=== PATIENT | male | born 1945 ===

== ENCOUNTER 2020-04-24 20:20 | Inpatient (IN) ==
[2020-04-24] MEDS ORDERED: NS 0.9% 1000 ml BAG 1,000 ML IV ONE ×2 (20:56→21:47)
[2020-04-24] MEDS ORDERED: Pantoprazole VIAL 40 MG VIAL IV ONE (21:11)
[2020-04-24 21:28] LABS: ABS Lymphocytes 0.8 10^3/ul (1.0-4.8); ABS Monocytes 0.7 10^3/ul (0-0.8); ABS Neutrophils 6.2 10^3/ul (1.5-7.7); Hematocrit 37 % (42-52); Hemoglobin 12.4 g/dL (14.0-18.0); Lymphocyte % 10.8 %; Mean Corpuscular HGB Conc 34 g/dL (31-36); Mean Corpuscular Hemoglobin 37 pg (27-31); Mean Corpuscular Volume 109 fL (80-94); Mean Platelet Volume 11.4 fL (7.4-10.4); Platelet Count 58 10^3/uL (150-450); Red Blood Count 3.37 10^6 /uL (4.18-5.48); Red Cell Distribution Width 16 % (10-15); White Blood Count 7.8 10^3/uL (3.5-10.8)
[2020-04-24 21:38] LABS: Urine Appearance Clear; Urine Bilirubin Negative (Negative); Urine Blood 1+ (Negative); Urine Color Yellow; Urine Glucose Negative (Negative); Urine Ketones Trace (Negative); Urine Nitrite Negative (Negative); Urine Protein 2+(100 mg/dL) (Negative); Urine Specific Gravity 1.016 (1.010-1.030); Urine Urobilinogen Negative (Negative)
[2020-04-24 21:39] LABS: Activated Partial Thrombo Time 31.8 seconds (26.0-38.0); INR 1.3 (0.82-1.09)
[2020-04-24 21:45] LABS: Urine Bacteria Absent (Absent); Urine Red Blood Cell Trace(0-2/hpf) (Absent); Urine White Blood Cell Trace(0-5/hpf) (Absent)
[2020-04-24 21:47] LABS: ALT 41 U/L (7-52); AST 59 U/L (13-39); Albumin 3.4 g/dL (3.2-5.2); Albumin/Globulin Ratio 0.7 (1-3); Alkaline Phosphatase 118 U/L (34-104); BUN/Creatinine Ratio 25.8 (8-20); Blood Urea Nitrogen 58 mg/dL (6-24); C Reactive Protein 41.17 mg/L (<8.01); Calcium 9.8 mg/dL (8.6-10.3); Creatine Kinase 960 U/L (10-223); EGFR African American 34.8 (>60); EGFR Non-African American 28.7 (>60); Globulin 4.9 g/dL (2-4); Glucose 146 mg/dL (70-100); Sodium 143 mmol/L (135-145); Total Protein 8.3 g/dL (6.4-8.9)
[2020-04-24 21:48] LABS: Anion Gap 18 mmol/L (2-11); CO2 Carbon Dioxide 12 mmol/L (22-32); Chloride 113 mmol/L (101-111); Potassium 5.8 mmol/L (3.5-5.0)
[2020-04-24 21:49] LABS: Troponin I 0.25 ng/mL (<0.03)
[2020-04-24] MEDS ORDERED: Dexamethasone IV 6 MG in NS 0.9% 50 ML 50 ML IVPB ONE (23:51)
[2020-04-25 00:30] LABS: LDH 277 U/L (140-271)
[2020-04-25] MEDS ORDERED: Dexamethasone IV 4 MG/ML VIAL 1 ml VIAL IV SLOW PU ONE (00:30)
[2020-04-25] MEDS ORDERED: Patiromer POWDER 8.4 GM PAK PO ONE (00:30)
[2020-04-25] MEDS ORDERED: Dextrose 50% Syringe 50 ml 25 GM/50 ML SYRINGE IV PUSH PRN (00:44)
[2020-04-25 00:49] LABS: Ferritin 283.4 ng/mL (24-336)
[2020-04-25 02:02] LABS: Urine Creatinine Concentration 120.01 mg/dL
[2020-04-25 02:03] LABS: BUN/Creatinine Ratio 27.8 (8-20); Blood Urea Nitrogen 54 mg/dL (6-24); CO2 Carbon Dioxide 15 mmol/L (22-32); Calcium 9.1 mg/dL (8.6-10.3); EGFR African American 41.3 (>60); EGFR Non-African American 34.1 (>60); Glucose 149 mg/dL (70-100); Potassium 4.6 mmol/L (3.5-5.0); Sodium 144 mmol/L (135-145)
[2020-04-25 02:05] LABS: Anion Gap 12 mmol/L (2-11); Chloride 117 mmol/L (101-111)
[2020-04-25 02:06] LABS: Troponin I 0.28 ng/mL (<0.03)
[2020-04-25] MEDS: Sodium Bicarb 8.4% Vial 50 ML 150 MEQ in D5W 1000 ml BAG 850 ML IV SCH (02:51)
[2020-04-25] MEDS ORDERED: Enoxaparin 40 MG/0.4 ML SYR SUBCUT SCH (06:00)
[2020-04-25 06:36] LABS: ABS Lymphocytes 0.7 10^3/ul (1.0-4.8); ABS Monocytes 0.3 10^3/ul (0-0.8); ABS Neutrophils 5.7 10^3/ul (1.5-7.7); Hematocrit 32 % (42-52); Hemoglobin 11.2 g/dL (14.0-18.0); Lymphocyte % 10.7 %; Mean Corpuscular HGB Conc 35 g/dL (31-36); Mean Corpuscular Hemoglobin 37 pg (27-31); Mean Corpuscular Volume 108 fL (80-94); Mean Platelet Volume 12.1 fL (7.4-10.4); Nucleated Red Blood Cells % 0.1; Platelet Count 55 10^3/uL (150-450); Red Cell Distribution Width 16 % (10-15); White Blood Count 6.7 10^3/uL (3.5-10.8)
[2020-04-25 08:28] LABS: Troponin I 0.24 ng/mL (<0.03)
[2020-04-25] MEDS: Aspirin EC 81 mg TAB.EC (enteric coated) PO SCH (10:32)
[2020-04-25 17:48] LABS: BUN/Creatinine Ratio 31.2 (8-20); EGFR Non-African American 39.7 (>60); Potassium 3.9 mmol/L (3.5-5.0)
[2020-04-25] MEDS: Enoxaparin 40 MG/0.4 ML SYR SUBCUT SCH (20:30)
[2020-04-26] MEDS: cefTRIAXone 1 gm/50 mL NS BAG 1 GM/50 ML BAG IVPB SCH (01:08)
[2020-04-26] MEDS: Sodium Bicarb 8.4% Vial 50 ML 150 MEQ in D5W 1000 ml BAG 850 ML IV SCH (03:21)
[2020-04-26] MEDS: Enoxaparin 40 MG/0.4 ML SYR SUBCUT SCH ×2 (09:11→21:31)
[2020-04-26] MEDS: Aspirin EC 81 mg TAB.EC (enteric coated) PO SCH (09:11)
[2020-04-26 10:23] LABS: ABS Lymphocytes 0.8 10^3/ul (1.0-4.8); ABS Monocytes 0.3 10^3/ul (0-0.8); ABS Neutrophils 7.7 10^3/ul (1.5-7.7); Hematocrit 31 % (42-52); Hemoglobin 10.4 g/dL (14.0-18.0); Lymphocyte % 9.2 %; Mean Corpuscular HGB Conc 34 g/dL (31-36); Mean Corpuscular Hemoglobin 37 pg (27-31); Mean Corpuscular Volume 109 fL (80-94); Mean Platelet Volume 11.2 fL (7.4-10.4); Platelet Count 51 10^3/uL (150-450); Red Blood Count 2.81 10^6 /uL (4.18-5.48); Red Cell Distribution Width 16 % (10-15); White Blood Count 8.9 10^3/uL (3.5-10.8)
[2020-04-26 10:37] LABS: Albumin 2.7 g/dL (3.2-5.2); Albumin/Globulin Ratio 0.7 (1-3); BUN/Creatinine Ratio 35.6 (8-20); Calcium 8.3 mg/dL (8.6-10.3); EGFR African American 55.9 (>60); EGFR Non-African American 46.2 (>60); Total Protein 6.7 g/dL (6.4-8.9)
[2020-04-26] MEDS ORDERED: NS 0.9% 1000 ml BAG 1,000 ML IV SCH (11:00)
[2020-04-26] MEDS ORDERED: NS 0.9% 500 ml BAG 500 ML IV ONE (22:33)
[2020-04-27] MEDS: cefTRIAXone 1 gm/50 mL NS BAG 1 GM/50 ML BAG IVPB SCH (01:01)
[2020-04-27 04:50] LABS: Albumin 2.6 g/dL (3.2-5.2); Albumin/Globulin Ratio 0.7 (1-3); BUN/Creatinine Ratio 33.3 (8-20); C Reactive Protein 22.79 mg/L (<8.01); Calcium 7.8 mg/dL (8.6-10.3); EGFR African American 62.7 (>60); EGFR Non-African American 51.8 (>60); Globulin 3.8 g/dL (2-4); Potassium 3.7 mmol/L (3.5-5.0); Total Bilirubin 0.7 mg/dL (0.2-1.0); Total Protein 6.4 g/dL (6.4-8.9)
[2020-04-27 04:52] LABS: ABS Lymphocytes 0.6 10^3/ul (1.0-4.8); ABS Monocytes 0.4 10^3/ul (0-0.8); ABS Neutrophils 5.2 10^3/ul (1.5-7.7); Hematocrit 27 % (42-52); Hemoglobin 9.5 g/dL (14.0-18.0); Mean Corpuscular HGB Conc 35 g/dL (31-36); Mean Corpuscular Hemoglobin 37 pg (27-31); Mean Corpuscular Volume 107 fL (80-94); Mean Platelet Volume 12.1 fL (7.4-10.4); Nucleated Red Blood Cells % 0.1; Platelet Count 45 10^3/uL (150-450); Red Blood Count 2.55 10^6 /uL (4.18-5.48); Red Cell Distribution Width 16 % (10-15); White Blood Count 6.1 10^3/uL (3.5-10.8)
[2020-04-27] MEDS: Sodium Bicarb 8.4% Vial 50 ML 150 MEQ in D5W 1000 ml BAG 850 ML IV SCH (05:34)
[2020-04-27] MEDS: Aspirin EC 81 mg TAB.EC (enteric coated) PO SCH (09:47)
[2020-04-27] MEDS: Enoxaparin 40 MG/0.4 ML SYR SUBCUT SCH (09:48)
[2020-04-28 07:34] LABS: ABS Lymphocytes 0.7 10^3/ul (1.0-4.8); ABS Monocytes 0.7 10^3/ul (0-0.8); ABS Neutrophils 7.2 10^3/ul (1.5-7.7); Hematocrit 32 % (42-52); Hemoglobin 11.1 g/dL (14.0-18.0); Lymphocyte % 8.4 %; Mean Corpuscular HGB Conc 34 g/dL (31-36); Mean Corpuscular Hemoglobin 37 pg (27-31); Mean Corpuscular Volume 109 fL (80-94); Mean Platelet Volume 11.4 fL (7.4-10.4); Platelet Count 54 10^3/uL (150-450); Red Blood Count 2.96 10^6 /uL (4.18-5.48); Red Cell Distribution Width 16 % (10-15); White Blood Count 8.7 10^3/uL (3.5-10.8)
[2020-04-28 07:46] LABS: Potassium 4.1 mmol/L (3.5-5.0)
[2020-04-28 07:52] LABS: BUN/Creatinine Ratio 34.4 (8-20); EGFR African American 70.5 (>60); EGFR Non-African American 58.2 (>60)
[2020-04-28] MEDS: Aspirin EC 81 mg TAB.EC (enteric coated) PO SCH (10:14)
[2020-04-28] MEDS: Enoxaparin 40 MG/0.4 ML SYR SUBCUT SCH (10:20)
[2020-04-29] MEDS: Nystatin TOP POWDER 15 GM BTL TOPICAL SCH ×3 (00:11→17:50)
[2020-04-29 06:55] LABS: BUN/Creatinine Ratio 36.1 (8-20); Calcium 7.5 mg/dL (8.6-10.3); EGFR African American 70.5 (>60); EGFR Non-African American 58.2 (>60); Magnesium 1.6 mg/dL (1.9-2.7); Potassium 3.9 mmol/L (3.5-5.0)
[2020-04-29 07:15] LABS: ABS Lymphocytes 0.8 10^3/ul (1.0-4.8); ABS Monocytes 0.7 10^3/ul (0-0.8); ABS Neutrophils 10.8 10^3/ul (1.5-7.7); Hematocrit 33 % (42-52); Lymphocyte % 6.2 %; Mean Corpuscular HGB Conc 34 g/dL (31-36); Mean Corpuscular Hemoglobin 37 pg (27-31); Mean Corpuscular Volume 109 fL (80-94); Mean Platelet Volume 11.6 fL (7.4-10.4); Nucleated Red Blood Cells % 0.1; Platelet Count 54 10^3/uL (150-450); Red Blood Count 3.01 10^6 /uL (4.18-5.48); Red Cell Distribution Width 16 % (10-15); White Blood Count 12.3 10^3/uL (3.5-10.8)
[2020-04-29] MEDS ORDERED: Magnesium Sulfate 2 gm BAG 2 GM/50 ML BAG IVPB ONE (08:12)
[2020-04-29] MEDS: Aspirin EC 81 mg TAB.EC (enteric coated) PO SCH (09:43)
[2020-04-29] MEDS: Enoxaparin 40 MG/0.4 ML SYR SUBCUT SCH (09:45)
[2020-04-29] MEDS ORDERED: Remdesivir 5 MG/ML LIQ IV Vial 200 MG in NS 0.9% 250 ml 210 ML IV ONE (11:30)
[2020-04-29] MEDS ORDERED: Dextrose 50% Syringe 50 ml 25 GM/50 ML SYRINGE IV PUSH PRN (19:28)
[2020-04-30] MEDS: Nystatin TOP POWDER 15 GM BTL TOPICAL SCH ×4 (06:09→21:43)
[2020-04-30 06:39] LABS: ABS Lymphocytes 0.8 10^3/ul (1.0-4.8); ABS Monocytes 0.4 10^3/ul (0-0.8); ABS Neutrophils 10.3 10^3/ul (1.5-7.7); Hematocrit 32 % (42-52); Hemoglobin 10.7 g/dL (14.0-18.0); Lymphocyte % 6.7 %; Mean Corpuscular HGB Conc 34 g/dL (31-36); Mean Corpuscular Hemoglobin 37 pg (27-31); Mean Corpuscular Volume 108 fL (80-94); Mean Platelet Volume 11.4 fL (7.4-10.4); Platelet Count 59 10^3/uL (150-450); Red Blood Count 2.92 10^6 /uL (4.18-5.48); Red Cell Distribution Width 16 % (10-15); White Blood Count 11.5 10^3/uL (3.5-10.8)
[2020-04-30 06:40] LABS: BUN/Creatinine Ratio 38.5 (8-20); Blood Urea Nitrogen 52 mg/dL (6-24); CO2 Carbon Dioxide 20 mmol/L (22-32); Calcium 7.8 mg/dL (8.6-10.3); Chloride 103 mmol/L (101-111); EGFR African American 62.7 (>60); EGFR Non-African American 51.8 (>60); Glucose 256 mg/dL (70-100); Magnesium 2.1 mg/dL (1.9-2.7); Sodium 131 mmol/L (135-145)
[2020-04-30 06:51] LABS: Anion Gap 8 mmol/L (2-11)
[2020-04-30] MEDS ORDERED: Lactated Ringers 1000 ml BAG 1,000 ML IV ONE (09:16)
[2020-04-30] MEDS: Aspirin EC 81 mg TAB.EC (enteric coated) PO SCH (09:20)
[2020-04-30] MEDS: Enoxaparin 40 MG/0.4 ML SYR SUBCUT SCH (09:21)
[2020-04-30] MEDS: Remdesivir 5 MG/ML LIQ IV Vial 100 MG in NS 0.9% 250 ml 230 ML IV SCH (12:37)
[2020-04-30] MEDS ORDERED: Furosemide 20 mg/2 ml IV VIAL IV ONE ×2 (17:22→17:57)
[2020-04-30] MEDS ORDERED: Furosemide 20 mg/2 ml IV VIAL ONE (17:46)
[2020-04-30] MEDS: Insulin GLARGINE 100 un/ml 10 ml VIAL SUBCUT SCH (21:44)
[2020-05-01] MEDS ORDERED: Atropine 0.1 MG/ML 10 ml SYR (1 mg) IV PUSH PRN (02:42)
[2020-05-01 05:15] LABS: Hematocrit 30 % (42-52); Hemoglobin 10.7 g/dL (14.0-18.0); Mean Corpuscular HGB Conc 36 g/dL (31-36); Mean Corpuscular Hemoglobin 38 pg (27-31); Mean Corpuscular Volume 108 fL (80-94); Mean Platelet Volume 12.1 fL (7.4-10.4); Platelet Count 55 10^3/uL (150-450); Red Blood Count 2.79 10^6 /uL (4.18-5.48); Red Cell Distribution Width 16 % (10-15); White Blood Count 5.9 10^3/uL (3.5-10.8)
[2020-05-01 05:23] LABS: Albumin 2.4 g/dL (3.2-5.2); Albumin/Globulin Ratio 0.7 (1-3); BUN/Creatinine Ratio 45.3 (8-20); Calcium 7.9 mg/dL (8.6-10.3); EGFR African American 66.7 (>60); EGFR Non-African American 55.1 (>60); Globulin 3.6 g/dL (2-4); Magnesium 1.9 mg/dL (1.9-2.7); Phosphorus 3.5 mg/dL (2.5-5.0); Potassium 4.3 mmol/L (3.5-5.0)
[2020-05-01] MEDS: Nystatin TOP POWDER 15 GM BTL TOPICAL SCH ×3 (08:45→21:44)
[2020-05-01] MEDS ORDERED: Furosemide 40 mg/4 ml IV VIAL IV ONE ×2 (08:56→13:23)
[2020-05-01] MEDS: Enoxaparin 40 MG/0.4 ML SYR SUBCUT SCH (09:21)
[2020-05-01] MEDS: Aspirin EC 81 mg TAB.EC (enteric coated) PO SCH (09:23)
[2020-05-01] MEDS: Remdesivir 5 MG/ML LIQ IV Vial 100 MG in NS 0.9% 250 ml 230 ML IV SCH (14:30)
[2020-05-01] MEDS: Insulin GLARGINE 100 un/ml 10 ml VIAL SUBCUT SCH (21:44)
[2020-05-01] MEDS ORDERED: Multivitamins ADULT w/MIN LIQ 15 ML UDC PO SCH (23:00)
[2020-05-02] MEDS ORDERED: Dextrose 50% Syringe 50 ml 25 GM/50 ML SYRINGE IV PUSH PRN (00:22)
[2020-05-02 04:55] LABS: Hematocrit 31 % (42-52); Hemoglobin 10.7 g/dL (14.0-18.0); Mean Corpuscular HGB Conc 34 g/dL (31-36); Mean Corpuscular Hemoglobin 37 pg (27-31); Mean Corpuscular Volume 108 fL (80-94); Mean Platelet Volume 12.3 fL (7.4-10.4); Platelet Count 76 10^3/uL (150-450); Red Blood Count 2.89 10^6 /uL (4.18-5.48); Red Cell Distribution Width 16 % (10-15); White Blood Count 6.2 10^3/uL (3.5-10.8)
[2020-05-02 05:07] LABS: Albumin 2.3 g/dL (3.2-5.2); Albumin/Globulin Ratio 0.6 (1-3); BUN/Creatinine Ratio 51.5 (8-20); Calcium 7.9 mg/dL (8.6-10.3); EGFR African American 62.2 (>60); EGFR Non-African American 51.4 (>60); Globulin 3.8 g/dL (2-4); Potassium 4.4 mmol/L (3.5-5.0); Total Bilirubin 0.8 mg/dL (0.2-1.0); Total Protein 6.1 g/dL (6.4-8.9)
[2020-05-02] MEDS: Enoxaparin 40 MG/0.4 ML SYR SUBCUT SCH (08:05)
[2020-05-02] MEDS: Aspirin EC 81 mg TAB.EC (enteric coated) PO SCH (08:06)
[2020-05-02] MEDS: Nystatin TOP POWDER 15 GM BTL TOPICAL SCH ×5 (08:07→22:14)
[2020-05-02] MEDS ORDERED: Multivitamins ADULT w/MIN LIQ 15 ML UDC PO SCH (09:00)
[2020-05-02] MEDS: Insulin GLARGINE 100 un/ml 10 ml VIAL SUBCUT SCH ×2 (09:37→20:56)
[2020-05-02 11:10] LABS: Indirect Bilirubin 0.6 mg/dL (0.3-1.0)
[2020-05-02] MEDS: Multivitamins/Minerals TAB PO SCH (12:58)
[2020-05-02] MEDS: Remdesivir 5 MG/ML LIQ IV Vial 100 MG in NS 0.9% 250 ml 230 ML IV SCH (14:34)
[2020-05-03 05:54] LABS: Hematocrit 31 % (42-52); Hemoglobin 10.7 g/dL (14.0-18.0); Mean Corpuscular HGB Conc 34 g/dL (31-36); Mean Corpuscular Hemoglobin 37 pg (27-31); Mean Corpuscular Volume 107 fL (80-94); Mean Platelet Volume 13.2 fL (7.4-10.4); Platelet Count 66 10^3/uL (150-450); Red Cell Distribution Width 16 % (10-15); White Blood Count 7.8 10^3/uL (3.5-10.8)
[2020-05-03 06:04] LABS: ALT 77 U/L (7-52); Albumin 2.3 g/dL (3.2-5.2); Albumin/Globulin Ratio 0.6 (1-3); Alkaline Phosphatase 87 U/L (34-104); BUN/Creatinine Ratio 54.1 (8-20); Blood Urea Nitrogen 72 mg/dL (6-24); CO2 Carbon Dioxide 20 mmol/L (22-32); Chloride 104 mmol/L (101-111); EGFR African American 63.8 (>60); EGFR Non-African American 52.7 (>60); Globulin 3.8 g/dL (2-4); Glucose 227 mg/dL (70-100); Phosphorus 4.2 mg/dL (2.5-5.0); Sodium 131 mmol/L (135-145); Total Protein 6.1 g/dL (6.4-8.9)
[2020-05-03 06:13] LABS: Anion Gap 7 mmol/L (2-11)
[2020-05-03 07:28] LABS: Potassium Redraw 4.9 mmol/L (3.5-5.0)
[2020-05-03] MEDS ORDERED: Remdesivir 100 mg Q24H MAINTENANCE DOSING (LIQ Vial) IV SCH (09:00)
[2020-05-03] MEDS: Multivitamins/Minerals TAB PO SCH (09:42)
[2020-05-03] MEDS: Aspirin EC 81 mg TAB.EC (enteric coated) PO SCH (09:44)
[2020-05-03] MEDS: Nystatin TOP POWDER 15 GM BTL TOPICAL SCH ×3 (09:44→21:17)
[2020-05-03] MEDS: Insulin GLARGINE 100 un/ml 10 ml VIAL SUBCUT SCH ×2 (09:55→21:16)
[2020-05-03] MEDS: Enoxaparin 40 MG/0.4 ML SYR SUBCUT SCH (09:55)
[2020-05-03] MEDS: Polyethylene Glycol 3350 17 GM PACKET PO SCH (15:03)
[2020-05-04 04:53] LABS: Hematocrit 31 % (42-52); Hemoglobin 10.9 g/dL (14.0-18.0); Mean Corpuscular HGB Conc 35 g/dL (31-36); Mean Corpuscular Hemoglobin 37 pg (27-31); Mean Corpuscular Volume 106 fL (80-94); Mean Platelet Volume 11.3 fL (7.4-10.4); Platelet Count 64 10^3/uL (150-450); Red Blood Count 2.97 10^6 /uL (4.18-5.48); Red Cell Distribution Width 16 % (10-15); White Blood Count 8.9 10^3/uL (3.5-10.8)
[2020-05-04 05:13] LABS: Albumin 2.2 g/dL (3.2-5.2); Albumin/Globulin Ratio 0.6 (1-3); BUN/Creatinine Ratio 54.4 (8-20); Calcium 7.9 mg/dL (8.6-10.3); EGFR African American 55.8 (>60); EGFR Non-African American 46.1 (>60); Globulin 3.8 g/dL (2-4); Magnesium 2.1 mg/dL (1.9-2.7); Phosphorus 4.1 mg/dL (2.5-5.0); Potassium 4.7 mmol/L (3.5-5.0); Total Bilirubin 0.9 mg/dL (0.2-1.0)
[2020-05-04] MEDS: Enoxaparin 40 MG/0.4 ML SYR SUBCUT SCH (09:44)
[2020-05-04] MEDS: Insulin GLARGINE 100 un/ml 10 ml VIAL SUBCUT SCH ×2 (09:44→22:07)
[2020-05-04] MEDS: Aspirin EC 81 mg TAB.EC (enteric coated) PO SCH (09:47)
[2020-05-04] MEDS: Nystatin TOP POWDER 15 GM BTL TOPICAL SCH ×3 (09:49→22:07)
[2020-05-04] MEDS: Multivitamins/Minerals TAB PO SCH (09:49)
[2020-05-04] MEDS: Polyethylene Glycol 3350 17 GM PACKET PO SCH (12:48)
[2020-05-05 05:26] LABS: BUN/Creatinine Ratio 51.6 (8-20); EGFR African American 52.5 (>60); EGFR Non-African American 43.4 (>60); Magnesium 2.2 mg/dL (1.9-2.7); Phosphorus 4.1 mg/dL (2.5-5.0)
[2020-05-05 05:27] LABS: Potassium 5.2 mmol/L (3.5-5.0)
[2020-05-05 05:34] LABS: ABS Lymphocytes 0.6 10^3/ul (1.0-4.8); ABS Monocytes 0.9 10^3/ul (0-0.8); ABS Neutrophils 9.7 10^3/ul (1.5-7.7); Eosinophil % 0.1 %; Hematocrit 32 % (42-52); Hemoglobin 11.1 g/dL (14.0-18.0); Lymphocyte % 5.7 %; Mean Corpuscular HGB Conc 34 g/dL (31-36); Mean Corpuscular Hemoglobin 36 pg (27-31); Mean Corpuscular Volume 106 fL (80-94); Mean Platelet Volume 12.9 fL (7.4-10.4); Platelet Count 74 10^3/uL (150-450); Red Blood Count 3.05 10^6 /uL (4.18-5.48); Red Cell Distribution Width 16 % (10-15); White Blood Count 11.2 10^3/uL (3.5-10.8)
[2020-05-05] MEDS: Aspirin EC 81 mg TAB.EC (enteric coated) PO SCH (09:18)
[2020-05-05] MEDS: Multivitamins/Minerals TAB PO SCH (09:18)
[2020-05-05] MEDS: Polyethylene Glycol 3350 17 GM PACKET PO SCH (09:18)
[2020-05-05] MEDS: Enoxaparin 40 MG/0.4 ML SYR SUBCUT SCH (09:19)
[2020-05-05] MEDS: Nystatin TOP POWDER 15 GM BTL TOPICAL SCH ×3 (09:19→19:48)
[2020-05-05] MEDS: Insulin GLARGINE 100 un/ml 10 ml VIAL SUBCUT SCH ×2 (09:31→19:46)
[2020-05-06 05:10] LABS: Albumin 2.1 g/dL (3.2-5.2); Albumin/Globulin Ratio 0.6 (1-3); EGFR African American 39.7 (>60); EGFR Non-African American 32.8 (>60); Globulin 3.8 g/dL (2-4); Magnesium 2.4 mg/dL (1.9-2.7); Phosphorus 4.8 mg/dL (2.5-5.0); Total Bilirubin 1.5 mg/dL (0.2-1.0); Total Protein 5.9 g/dL (6.4-8.9)
[2020-05-06 05:19] LABS: Potassium 5.5 mmol/L (3.5-5.0)
[2020-05-06 05:21] LABS: Indirect Bilirubin 1.2 mg/dL (0.3-1.0)
[2020-05-06 05:59] LABS: ABS Lymphocytes 0.7 10^3/ul (1.0-4.8); ABS Monocytes 0.9 10^3/ul (0-0.8); ABS Neutrophils 9.6 10^3/ul (1.5-7.7); Eosinophil % 0.1 %; Hematocrit 37 % (42-52); Hemoglobin 12.4 g/dL (14.0-18.0); Lymphocyte % 6.4 %; Mean Corpuscular HGB Conc 34 g/dL (31-36); Mean Corpuscular Hemoglobin 36 pg (27-31); Mean Corpuscular Volume 106 fL (80-94); Mean Platelet Volume 12.8 fL (7.4-10.4); Platelet Count 73 10^3/uL (150-450); Red Blood Count 3.46 10^6 /uL (4.18-5.48); Red Cell Distribution Width 16 % (10-15); White Blood Count 11.2 10^3/uL (3.5-10.8)
[2020-05-06] MEDS: Enoxaparin 40 MG/0.4 ML SYR SUBCUT SCH (10:06)
[2020-05-06] MEDS: Insulin GLARGINE 100 un/ml 10 ml VIAL SUBCUT SCH ×2 (10:06→19:36)
[2020-05-06] MEDS: Multivitamins/Minerals TAB PO SCH (10:08)
[2020-05-06] MEDS: Polyethylene Glycol 3350 17 GM PACKET PO SCH (10:09)
[2020-05-06] MEDS: Aspirin EC 81 mg TAB.EC (enteric coated) PO SCH (10:09)
[2020-05-06] MEDS: Nystatin TOP POWDER 15 GM BTL TOPICAL SCH ×3 (10:09→19:26)
[2020-05-06 16:20] LABS: Albumin 2.1 g/dL (3.2-5.2); Albumin/Globulin Ratio 0.6 (1-3); BUN/Creatinine Ratio 44.9 (8-20); Calcium 8.3 mg/dL (8.6-10.3); EGFR African American 33.1 (>60); EGFR Non-African American 27.4 (>60); Globulin 3.7 g/dL (2-4); Total Bilirubin 1.5 mg/dL (0.2-1.0); Total Protein 5.8 g/dL (6.4-8.9)
[2020-05-06 16:21] LABS: Potassium 5.6 mmol/L (3.5-5.0)
[2020-05-06] MEDS ORDERED: Sodium Bicarbonate 8.4% SYR 50 ml SYRINGE IV ONE ×2 (18:15)
[2020-05-06] MEDS ORDERED: Sodium Bicarbonate 8.4% SYR 50 ml SYRINGE ONE (18:22)
[2020-05-06] MEDS ORDERED: Lactated Ringers 1000 ml BAG 500 ML IV SCH (19:00)
[2020-05-06] MEDS: Lactulose 30 ml UDC PO SCH (19:26)
[2020-05-06] MEDS: Docusate LIQ 100 MG/10 ML UDC PO SCH (19:47)
[2020-05-06] MEDS ORDERED: Norepinephrine 16MCG/ML IVPRE 4,000 MCG/250 ML BAG IV ONE (21:11)
[2020-05-06] MEDS ORDERED: Lactated Ringers 500 ml BAG 500 ML IV ONE (21:15)
[2020-05-06 23:55] LABS: Calcium 8.1 mg/dL (8.6-10.3); Chloride 104 mmol/L (101-111); Sodium 134 mmol/L (135-145)
[2020-05-07 00:01] LABS: ALT 63 U/L (7-52); Albumin/Globulin Ratio 0.5 (1-3); Alkaline Phosphatase 105 U/L (34-104); BUN/Creatinine Ratio 42.9 (8-20); Blood Urea Nitrogen 109 mg/dL (6-24); C Reactive Protein 122.57 mg/L (<8.01); CO2 Carbon Dioxide 13 mmol/L (22-32); EGFR African American 30.1 (>60); EGFR Non-African American 24.9 (>60); Globulin 3.7 g/dL (2-4); Glucose 156 mg/dL (70-100); Total Protein 5.7 g/dL (6.4-8.9)
[2020-05-07 00:05] LABS: Anion Gap 17 mmol/L (2-11)
[2020-05-07 00:06] LABS: Ammonia 321 mcmol/L (16-53); BNP 195 pg/mL (<=100)
[2020-05-07 00:47] LABS: Urine Appearance Cloudy; Urine Bilirubin Negative (Negative); Urine Blood Negative (Negative); Urine Color Amber; Urine Glucose Negative (Negative); Urine Ketones Negative (Negative); Urine Nitrite Negative (Negative); Urine Protein Negative (Negative); Urine Specific Gravity 1.015 (1.010-1.030); Urine Urobilinogen Negative (Negative)
[2020-05-07] MEDS ORDERED: Piperacillin/Tazobac ADVAN 3.375 GM in NS 0.9% 100 ml BAG 100 ML IV ONE (01:00)
[2020-05-07] MEDS ORDERED: Zosyn per Pharmacy NOTE FOLLOW UP SCH (01:00)
[2020-05-07] MEDS ORDERED: LACTATED RINGERS 500 ML BAG IV ONE (01:00)
[2020-05-07 01:01] LABS: ABS Lymphocytes 0.4 10^3/ul (1.0-4.8); ABS Neutrophils 15.7 10^3/ul (1.5-7.7); Hematocrit 46 % (42-52); Hemoglobin 15.2 g/dL (14.0-18.0); Lymphocyte % 2.2 %; Mean Corpuscular HGB Conc 33 g/dL (31-36); Mean Corpuscular Hemoglobin 36 pg (27-31); Mean Corpuscular Volume 110 fL (80-94); Platelet Count 116 10^3/uL (150-450); Red Cell Distribution Width 18 % (10-15); White Blood Count 17.2 10^3/uL (3.5-10.8)
[2020-05-07] MEDS: Sodium Bicarb 8.4% Vial 50 ML 150 MEQ in D5W 1000 ml BAG 850 ML IV SCH ×2 (01:16→11:39)
[2020-05-07] MEDS: Lactulose 30 ml UDC PO SCH ×6 (01:29→21:39)
[2020-05-07 01:39] LABS: Urine Bacteria 2+ (Absent); Urine Red Blood Cell Trace(0-2/hpf) (Absent); Urine White Blood Cell 3+(>20/hpf) (Absent)
[2020-05-07] MEDS ORDERED: Lactulose 30 ml UDC PO SCH (02:00)
[2020-05-07] MEDS: ZOSYN 3.375 GM Q8H per EXTENDED INFUSION IV SCH ×3 (04:26→22:30)
[2020-05-07 05:12] LABS: BUN/Creatinine Ratio 41.1 (8-20); Calcium 7.6 mg/dL (8.6-10.3); EGFR African American 27.5 (>60); EGFR Non-African American 22.7 (>60); Magnesium 2.5 mg/dL (1.9-2.7); Phosphorus 7.6 mg/dL (2.5-5.0)
[2020-05-07] MEDS: Norepinephrine 16MCG/ML IVPRE 4,000 MCG/250 ML BAG IV SCH ×4 (07:00→22:11)
[2020-05-07] MEDS: Aspirin EC 81 mg TAB.EC (enteric coated) PO SCH ×2 (08:01→08:03)
[2020-05-07] MEDS: Multivitamins/Minerals TAB PO SCH ×2 (08:01→08:02)
[2020-05-07] MEDS: Docusate LIQ 100 MG/10 ML UDC PO SCH ×2 (08:05→21:40)
[2020-05-07] MEDS: Polyethylene Glycol 3350 17 GM PACKET PO SCH (08:05)
[2020-05-07] MEDS: Enoxaparin 40 MG/0.4 ML SYR SUBCUT SCH (08:12)
[2020-05-07] MEDS: Insulin GLARGINE 100 un/ml 10 ml VIAL SUBCUT SCH ×2 (08:13→21:40)
[2020-05-07] MEDS: Nystatin TOP POWDER 15 GM BTL TOPICAL SCH ×3 (08:14→21:44)
[2020-05-07] MEDS: Linezolid 600 MG IVPREMIX(*) 600 MG/300 ML BAG IVPB SCH (15:14)
[2020-05-07 15:22] LABS: Potassium Redraw 3.7 mmol/L (3.5-5.0)
[2020-05-07 15:26] LABS: ABS Lymphocytes 0.4 10^3/ul (1.0-4.8); ABS Monocytes 0.8 10^3/ul (0-0.8); ABS Neutrophils 16.4 10^3/ul (1.5-7.7); Eosinophil % 0.1 %; Hematocrit 39 % (42-52); Hemoglobin 13.1 g/dL (14.0-18.0); Lymphocyte % 2.4 %; Mean Corpuscular HGB Conc 34 g/dL (31-36); Mean Corpuscular Hemoglobin 36 pg (27-31); Mean Corpuscular Volume 106 fL (80-94); Mean Platelet Volume 12.9 fL (7.4-10.4); Platelet Count 118 10^3/uL (150-450); Red Blood Count 3.63 10^6 /uL (4.18-5.48); Red Cell Distribution Width 17 % (10-15); White Blood Count 17.7 10^3/uL (3.5-10.8)
[2020-05-07] MEDS ORDERED: Succinylcholine 200 mg VIAL 20 mg/ml 10 ml VIAL (200 mg) ONE ×2 (17:08→17:54)
[2020-05-07] MEDS ORDERED: Etomidate 40 mg/20 ml (2 MG/ML) 20 ml VIAL (40 mg) ONE (17:54)
[2020-05-07] MEDS ORDERED: fentaNYL 250 mcg/5 ml 50 MCG/ML 5 ml VIAL (250 MCG) ONE (17:54)
[2020-05-07] MEDS ORDERED: Etomidate 20 mg/10 ml 2 MG/ML 10 ml VIAL ONE (18:13)
[2020-05-07] MEDS ORDERED: Rocuronium 50 mg VIAL 10 mg/ml 5 ml VIAL (50 mg) ONE (18:17)
[2020-05-07] MEDS ORDERED: Propofol 10 mg/ml 100 ML BTL 100 ML ONE (18:23)
[2020-05-07] MEDS: Propofol* 20 ML VIAL - FOR IV LINE PRIMING ONLY SCH (19:12)
[2020-05-07] MEDS: Chlorhexidine MOUTHWASH 0.12% 15 ML UDC SWISH SPIT SCH (21:39)
[2020-05-07] MEDS ORDERED: Sodium Bicarb 8.4% Vial 50 ML 150 MEQ in D5W 1000 ml BAG 850 ML IV SCH (22:00)
[2020-05-07] MEDS ORDERED: Vasopressin 100 UNITS in D5W 250 ML BAG IV SCH (22:14)
[2020-05-07] MEDS ORDERED: NOREPINEPHRINE IV SCH (22:15)
[2020-05-07] MEDS ORDERED: fentaNYL 100 mcg/2 ml 50 MCG/ML VIAL IV PRN (22:29)
[2020-05-08] MEDS: Lactulose 30 ml UDC PO SCH ×3 (00:16→09:34)
[2020-05-08] MEDS: Chlorhexidine MOUTHWASH 0.12% 15 ML UDC SWISH SPIT SCH ×5 (00:16→16:54)
[2020-05-08] MEDS: NOREPINEPHRINE IV SCH ×3 (00:25→14:36)
[2020-05-08] MEDS: Propofol 10 mg/ml 100 ML BTL 100 ML IV SCH ×2 (00:53→09:13)
[2020-05-08] MEDS: Linezolid 600 MG IVPREMIX(*) 600 MG/300 ML BAG IVPB SCH (02:04)
[2020-05-08 04:38] LABS: Albumin 1.8 g/dL (3.2-5.2); Albumin/Globulin Ratio 0.5 (1-3); BUN/Creatinine Ratio 33.7 (8-20); Calcium 7.4 mg/dL (8.6-10.3); EGFR Non-African American 17.4 (>60); Globulin 3.3 g/dL (2-4); Potassium 3.3 mmol/L (3.5-5.0); Total Bilirubin 1.7 mg/dL (0.2-1.0); Total Protein 5.1 g/dL (6.4-8.9)
[2020-05-08] MEDS ORDERED: Lactated Ringers 1000 ml BAG 1,000 ML IV SCH (06:00)
[2020-05-08] MEDS ORDERED: KCL 20 MEQ/100 ML IVPREMIX 20 MEQ/100 ML BAG IV ONE (06:16)
[2020-05-08] MEDS: ZOSYN 3.375 GM Q8H per EXTENDED INFUSION IV SCH ×2 (06:21→14:27)
[2020-05-08 06:24] LABS: ABS Basophils 0.1 10^3/ul (0-0.2); ABS Eosinophils 0.1 10^3/ul (0-0.6); ABS Lymphocytes 0.9 10^3/ul (1.0-4.8); ABS Monocytes 0.6 10^3/ul (0-0.8); ABS Neutrophils 16.9 10^3/ul (1.5-7.7); Eosinophil % 0.4 %; Hematocrit 40 % (42-52); Hemoglobin 13.4 g/dL (14.0-18.0); Mean Corpuscular HGB Conc 34 g/dL (31-36); Mean Corpuscular Hemoglobin 36 pg (27-31); Mean Corpuscular Volume 106 fL (80-94); Mean Platelet Volume 12.7 fL (7.4-10.4); Platelet Count 117 10^3/uL (150-450); Red Blood Count 3.75 10^6 /uL (4.18-5.48); Red Cell Distribution Width 17 % (10-15); White Blood Count 18.6 10^3/uL (3.5-10.8)
[2020-05-08] MEDS: Aspirin EC 81 mg TAB.EC (enteric coated) PO SCH (08:56)
[2020-05-08] MEDS: Multivitamins/Minerals TAB PO SCH (08:56)
[2020-05-08] MEDS ORDERED: Enoxaparin 30 MG/0.3 ML SYR SUBCUT SCH (09:00)
[2020-05-08] MEDS: Propofol* 20 ML VIAL - FOR IV LINE PRIMING ONLY SCH ×2 (09:34→17:02)
[2020-05-08] MEDS: Insulin GLARGINE 100 un/ml 10 ml VIAL SUBCUT SCH (09:35)
[2020-05-08] MEDS: Polyethylene Glycol 3350 17 GM PACKET PO SCH (09:35)
[2020-05-08] MEDS: Docusate LIQ 100 MG/10 ML UDC PO SCH (09:36)
[2020-05-08] MEDS: Nystatin TOP POWDER 15 GM BTL TOPICAL SCH ×2 (09:36→13:16)
[2020-05-08] MEDS ORDERED: fentaNYL 100 mcg/2 ml 50 MCG/ML VIAL IV SLOW PU PRN (11:23)
[2020-05-08] MEDS ORDERED: Dexmedetomidine 1,000 MCG in NS 0.9% 250 ml 240 ML IV SCH (12:00)
[2020-05-08] MEDS ORDERED: Hydrocortisone INJ 100 MG/2ML 2 ML VIAL IV SCH (12:00)
[2020-05-08] MEDS ORDERED: Lactulose 30 ml UDC PO SCH (12:00)
[2020-05-08] MEDS ORDERED: D5W 1/2 NS 1000 ml BAG 1,000 ML IV SCH (13:00)
[2020-05-08] MEDS: Albumin Human 25% 25 GM/100 ML BTL IV SCH ×2 (13:11→14:19)
[2020-05-08] MEDS ORDERED: Lorazepam PYXIS KEY PRN (15:18)
[2020-05-08] MEDS ORDERED: LORazepam 2 mg VIAL 1 ml IV PUSH PRN (15:18)
[2020-05-08] MEDS ORDERED: Morphine PCA ADULT 5 MG/ML 30 ML PCA SCH ×2 (15:30→16:16)
[2020-05-08 16:56] VITALS: BP 125/56
== END 2020-05-08 17:24 | disposition expired | DRG 871 ==
LOC: ED 20:20 → MED 20:20 → ICU 04-30 05:15
PROVIDERS: ADMIT Internal Medicine; ATTEND Internal Medicine